=== PATIENT | female | born 1995 | race Caucasian/White ===

== ENCOUNTER 2024-04-17 21:07 | Emergency (ER) | payer OTHER ==
--- OUTSIDE RECORDS SUMMARY | 2024-04-17 21:10 | XMS REPORT | Continuity of Care Document ---
Author Name Unknown Address [address] [facility] [address] [place] [address] [facility] [address] [facility] [address] [place] [address] Care Team Providers Care Community Organization Director Name Role Phone Pcp, Patient Does Not Have A Primary Care Physic rebecca MARK_Benjie_Gretel Attending Clinician Unavailab jarad Doctor Unassigned, [address] Attending Clinician U Dilcia Ackerman MD Attending Clinician [phone] Provider, [facility] Attending Clinician Unavailable Ashwin Spangler Attending Clinician [phone] DILCIA PATEL Attending Clinician Unavailable Unknown, Attending Attending Clinician Unavailab jarad Pcp, Patient Does Not Have A Attending Clinician TRINI HERNANDEZ III Attending Clinician UnavailYoon Ivey Attending Clinician [phone] Trini Hernandez MD Attending Clinician [phone] Kelsey Silva Attending Clinician [phone] ASHWIN FERRELL Attending Clinician Unavailable UNKNOWN, ATTENDING Attending Clinician Unavailab Lissette Hernandez RN Attending Clinician Unavailab Nori Petersen Attending Clinician [phone] Provider, [facility] Attending Clinician Un available YOON GONZALES Attending Clinician Unavailable Corey Admitting Clinician Unavailab jarad Payers Payer Name Policy Type Policy Number Effective Date Expirati on Date Source [place] [id number] 2020 00:00:00 Problems Condition Name Condition Details Condition Category Status Onset Date Resolution Date Last Treatment Date Treating Clinician Comments Source No known active problems No known active problems Disease [facility] Allergies, Adverse Reactions, Alerts Allergy Name Allergy Type Status Severity Reaction(s) Onset Date Inactive Date Treating Clinician Comments Source Adhesive Drug Allergy Active Rash 01-07 00:00: 00 [facility] Adhesive Drug Allergy Active Rash 01-07 00:00: 00 [facility] ADHESIVE Drug Class Active Rash 01-07 00:00: 00 [facility] ADHESIVE Allergy to substanc e Active [facility] Social History Social Habit Start Date Stop Date Quantity Comments Source Gender identity [facility] to SARS-CoV-2 (event) Not sure [facility] History of Social function 2022-11-24 00:00:00 2022-11-24 00:00:00 [facility] Tobacco use and exposure 2020-04-05 00:00:00 2020-04-05 00:00:00 Smokeless tobacco non-user [facility] Sex Assigned At 1995 00:00:00 1995 00:00:00 [facility] Smoking Status Start Date Stop Date Source Never smoked tobacco [facility] Medications Ordered Medication Name Filled Medication Name Start Date Stop Date Current Medication? Ordering Clinician Indication Dosage Frequency Signature (SIG) Comments Components Source cefdinir 300 mg capsule 12-01 00:00: 00 12-12 04:59 :00 No [id number] 600mg Take 2 capsules by mouth in the morning for 10 days. [facility] Nitrofurant oin&Nit. Macrocryst 100 mg capsule 11-24 00:00: 00 11-30 04:59 :00 No [id number] 100mg Take 1 capsule by mouth in the morning and 1 capsule in the evening. Do all this for 5 days. [facility] fluconazole (DIFLUCAN) 150 mg tablet 11-24 00:00: 00 11-25 04:59 :00 No [id number] 150mg Take 1 tablet by mouth once now for 1 dose. [facility] Nitrofurant oin&Nit. Macrocryst 100 mg capsule 1- 00:00: 00 06-05 05:59 :00 No [id number] 100mg Take 1 capsule by mouth 2 (two) times daily for 7 days. [facility] levonorgest reL (MACHELLE) 14 mcg/24 hrs (3 yrs) 13.5 mg IUD 01-07 14:34: 06 Yes Machelle 14 mcg/24 hrs (3 yrs) 13.5 mg intrauteri ne device Take 1 device by intrauteri ne route. [facility] glycopyrrol ate 1 mg tablet TAKE 2 TABLETS BY MOUTH TWICE DAILY glycopyrrol ate 1 mg tablet TAKE 2 TABLETS BY MOUTH TWICE DAILY No glycopyrro late 1 mg tablet TAKE 2 TABLETS BY MOUTH TWICE DAILY [facility] Immunizations Ordered Immunization Name Filled Immunization Name Date Status Comments Source COVID-19 (SARS-COV-2) vaccine, unspecified COVID-19 (SARS-COV-2) vaccine, unspecified Unknown Completed [facility] Vital Signs Vital Name Observation Time Observation Value Comments S ource Body Weight 2024-03-26 00:00:00 185 [lb_av] [facility] BP Diastolic 2024-03-26 00:00:00 74 mm[Hg] [facility] BMI (Body Mass Index) 2024-03-26 00:00:00 30.8 kg/m2 [facility] BP Systolic 2024-03-26 00:00:00 126 mm[Hg] [facility] Height 2024-03-26 00:00:00 65 [in_i] [facility] BP Diastolic 2023-11-24 00:00:00 85 mm[Hg] [facility] BP Systolic 2023-11-24 00:00:00 127 mm[Hg] [facility] Height 2023-11-24 00:00:00 65 [in_i] [facility] BMI (Body Mass Index) 2023-11-24 00:00:00 32.6 kg/m2 [facility] Body Weight 2023-11-24 00:00:00 196 [lb_av] [facility] Systolic blood pressure 2022-11-24 14:04:00 130 mm[Hg] [facility] Diastolic blood pressure 2022-11-24 14:04:00 81 mm[Hg] [facility] Heart rate 2022-11-24 14:04:00 100 /min [facility] Body temperature 2022-11-24 14:04:00 36.5 Jennifer [facility] Respiratory rate 2022-11-24 14:04:00 16 /min [facility] Body height 2022-11-24 14:04:00 165.1 cm [facility] Body weight 2022-11-24 14:04:00 88.315 kg [facility] BMI 2022-11-24 14:04:00 32.40 kg/m2 [facility] Oxygen saturation in Arterial blood by Pulse oximetry 2022-11-24 14:04:00 98 /min [place] [facility] Height 2021-05-14 00:00:00 65 [in_i] [facility] BMI (Body Mass Index) 2021-05-14 00:00:00 30.4 kg/m2 [facility] Body Weight 2021-05-14 00:00:00 182.4 [lb_av] [facility] Procedures Procedure Date / Time Performed Performing Clinicia n Source POCT TEST 2022-11-24 00:00:00 Dilcia Patel [facility] Encounters Start Date/Time End Date/Time Encounter Type Admission Type Attending [facility] Care Facility Care Department Encounter ID Source 2024-03-26 00:00:00 2024-03-26 00:00:00 Kelsey Silva MD: [address] [facility] [facility], [address], [place] [address] , Ph. [facility]_ [place] Office* [id number] [facility] 2023-11-24 00:00:00 2023-11-24 00:00:00 Kelsey Silva MD: [address] [place] [address] , Ph. [facility]_ [place] Office [id number] [facility] 2023-05-10 00:00:00 2023-05-10 00:00:00 Outpatient [facility] Black[facility]D [facility] [id number] [facility] 2022-12-28 00:00:00 2022-12-28 00:00:00 Patient Secure Msg Doctor Unassigned, [address] [facility] 1.2.840.114 350.1.13.10 4.2.7.2.686 [id number] [facility] 2022-12-04 00:00:00 2022-12-04 00:00:00 Refill Dilcia Patel [facility] 1.840.114 350.1.13.10 4.2.7.2.686 [id number] [facility] 2022-12-01 00:00:00 2022-12-01 00:00:00 Telephone Provider, [facility] 1..840.114 350.1.13.10 4.2.7.2.686 [id number] [facility] 2022-11-27 00:00:00 2022-11-27 00:00:00 Telephone Ashwin Ferrell [facility] 1..840.114 350.1.13.10 4.2.7.2.686 [id number] [facility] 2022-11-24 09:20:00 2022-11-24 09:28:07 Outpatient R DILCIA PATEL [facility] [id number] [facility] 2022-11-24 09:20:00 2022-11-24 09:28:07 Urgent Care Dilcia Patel Unknown, Attending [facility] 1.840.114 350.1.13.10 4.2.7.2.686 [id number] [facility] 2022-11-20 00:00:00 2022-11-20 00:00:00 Outpatient [facility]_ Black_D PRIV PRIV [id number] [facility] 2022-10-22 00:00:00 2022-10-22 00:00:00 Outpatient [facility] Black_D PRIV PRIV [id number] [facility] 2022-10-19 00:00:00 2022-10-19 00:00:00 Outpatient [facility] Black_D PRIV PRIV [id number] [facility] 2022-10-19 00:00:00 2022-10-19 00:00:00 Outpatient [facility] Black_D PRIV PRIV [id number] [facility] 2021-07-23 02:39:00 2021-07-23 02:39:00 Outpatient [facility] Black_D PRIV PRIV [id number] [facility] 2021-06-25 05:43:00 2021-06-25 05:43:00 Outpatient [facility] Black_D PRIV PRIV [id number] [facility] 2021-05-29 00:00:00 2021-05-29 00:00:00 Patient Secure Msg Pcp, Patient Does Not Have [facility] 1.2.840.114 350.1.13.10 4.2.7.2.686 [id number] [facility] 2021-05-28 16:20:00 2021-05-28 16:45:56 Outpatient TRINI CABEZAS III [facility] [id number] [facility] 2021-05-28 16:20:00 2021-05-28 16:40:00 Urgent Care Yoon Gonzales James C [facility] 1.2.840.114 350.1.13.10 4.2.7.2.686 [id number] [facility] 2021-05-28 03:24:00 2021-05-28 03:24:00 Outpatient [facility] Black_D PRIV PRIV [id number] [facility] 2021-05-28 00:00:00 2021-05-28 00:00:00 Orders Only Doctor Unassigned, [address] [facility] 1.2.840.114 350.1.13.10 4.2.7.2.686 [id number] [facility] 2021-05-15 10:17:00 2021-05-15 10:17:00 Outpatient [facility] Black_D PRIV PRIV [id number] [facility] 2021-05-14 10:03:00 2021-05-14 10:03:00 Outpatient [facility] Black_D PRIV PRIV [id number] [facility] 2021-05-14 00:00:00 2021-05-14 00:00:00 Outpatient Kelsey Silva PRIV PRIV [id number] 2021-05-14 00:00:00 2021-05-14 00:00:00 Kelsey Silva MD: [place] [address] , Ph. [facility] [place] Office [id number] [facility] 2021-05-13 11:48:00 2021-05-13 11:48:00 Outpatient [facility] Black_D PRIV PRIV [id number] [facility] 2021-04-02 09:46:00 2021-04-02 09:46:00 Outpatient [facility] Black_D PRIV PRIV [id number] [facility] 2021-04-01 10:18:00 2021-04-01 10:18:00 Outpatient [facility] Black_D PRIV PRIV [id number] [facility] 2021-02-26 17:00:00 2021-02-26 17:00:00 Outpatient R ASHWIN FERRELL [facility] [id number] [facility] 2021-02-26 16:00:00 2021-02-26 16:00:00 Outpatient R UNKNOWN, ATTENDING [facility] [id number] [facility] 2021-01-08 00:00:00 2021-01-08 00:00:00 Letter (Out) Lissette Schmidt [facility] 1..840.114 350.1.13.10 4.2.7.2.686 [id number] [facility] 2021-01-07 15:20:00 2021-01-07 15:20:00 Outpatient R UNKNOWN, ATTENDING [facility] [id number] [facility] 2021-01-07 14:00:32 2021-01-07 14:20:32 Urgent Care Nori Duran Unknown, Attending [facility] 1..840.114 350.1.13.10 4.2.7.2.686 [id number] [facility] 2020-04-05 16:40:40 2020-04-05 17:54:47 Urgent Care Provider, [facility] Urgent Care Yoon Gonzales [facility] Silvana [facility] Office [facility] 1..840.114 350.1.13.10 4.2.7.2.686 [id number] [facility] 2020-04-05 17:40:00 2020-04-05 17:40:00 Outpatient R YOON GONZALES [facility] [id number] [facility] Results Test Description Test Time Test Comments Results Result Co mments Source [facility] [id number] 16:07:00* Test Item Value Reference Range Interpretation Comme nts POCT PREG (test code = 1605) Negative On board controls acceptable with C Line (test code = 3574) Yes POCT PREG LOT # (test code = 3575) POCT PREG TEST DATE ( test code = 3576) [id number] 00:00:00* Test Item Value Reference Range Interpretation Comme nts HPV thinprep (test code = HP V thinprep) negative negative [facility], LB + HR [id number] 00:00:00* Test Item Value Reference Range Interpretation Comme nts LMP date: (test code = LMP date:) 05/21/2021 Pap, liquid-based (test code = Pap, liquid-based) nilm nilm source (liquid-based cytology): (test code = source (liquid-based cytology):) cervical-endocervical- vaginal [facility]
--- NOTE | 2024-04-17 22:23 | RAD REPORT ---
EXAMINATION: US FIRST TRIMESTER TRANSVAGINAL WITH DOPPLER CLINICAL INDICATION: with pelvic pain TECHNIQUE: Real-time obstetrical ultrasonography of the maternal pelvis and first trimester was performed transvaginally. Color and spectral Doppler evaluation of the ovaries was performed. COMPARISON: No prior exam. FINDINGS: The uterus measures 8 x 3 x 4 cm. A gestational sac is not visualized within the endometrium. Nabothian cysts within the cervix. Right ovary normal in size and echotexture. Blood flow present. Left ovary is enlarged measuring 4.8 x 4.8 x 3.5 cm. Blood flow is present. Right and left adnexa unr emarkable Right and left adnexa unremarkable. Small amount of free fluid in the cul-de-sac. IMPRESSION: Non visualization of a gestational sac within the endometrium. This could be a viable intrauterine pr egnancy in which the gestational sac not seen secondary to the early gestation. Other considerations include an and even ectopic . This should be correlated clinically and with serial beta-hCG levels. Follow-up endovaginal sonogram in one week recommended for reevaluation Enlargement of the left ovary.
[2024-04-17 22:27] LABS: Anion Gap 8.7 mEq/L (5.0-15.0); Potassium 3.7 mEq/L (3.5-5.1)
[2024-04-17 22:29] LABS: Absolute Eosinophils 0.3 K/uL (0-0.5); Absolute Lymphocytes (CBC) 3.9 K/uL (0.7-4.9); Absolute Monocytes 0.9 K/uL (0.1-1.3); Absolute Neutrophil 8.3 K/uL (1.8-8.0); Basophils % 0.3 % (0-1.3); Eosinophils % 1.9 % (0-4.4); Hematocrit 43.5 % (36.0-45.0); Hemoglobin 15.1 g/dL (12.0-15.0); Lymphocytes % 29.1 % (15.3-44.8); MCH 31.4 pg (27.0-35.0); MCHC 34.7 g/dL (32.0-36.0); MCV 90.4 fL (80-100); MPV 9.5 fL (7.6-11.3); Monocytes % 6.7 % (3.3-12.3); Nucleated Red Blood Cells % 0.1 % (0-0); Platelets 310 thou/uL (152-406); RBC Red Blood Cell Count 4.81 M/uL (3.86-4.86); Red Cell Distribution Width 13.4 % (12.1-15.2)
--- NOTE | 2024-04-17 23:14 | EDPHYS ---
Physician Documentation [facility] Name: Anny Webber Age: 29 yrs Sex: Female : 1995 Arrival Date: 04/17/2024 Time: 21:07 Bed 17 Private MD: ED Physician Gustavo Muniz HPI: 04/17 23:17 This 29 yrs old Female presents to ER via Ambulatory with complaints of Vaginal kb Bleeding, + Preg <12wks, Abdominal Cramping. 23:17 Pt is a 29 year old female who presents for lower abd cramping and vaginal bleeding. kb States she recently had a positive test. LMP 03/23/24. 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 - Infectious Disease History:: Denies. - Social history:: Smoking status: Patient denies any tobacco usage or history of. ROS: 22:56 Constitutional: As per HPI kb Exam: 23:14 Constitutional: This is a well developed, well nourished patient who is awake, alert, kb and in no acute distress. Head/Face: Normocephalic, atraumatic. ENT: Moist Mucous membranes Cardiovascular: Regular rate Respiratory: Respirations even and unlabored. No increased work of breathing. Talking in full sentences Skin: Warm, dry with normal turgor. Normal color. MS/ Extremity: Pulses equal, no cyanosis. Neurovascular intact. Full, normal range of motion. Neuro: Awake and alert, GCS 15, oriented to person, place, time, and situation. 23:14 Abdomen/GI: Inspection: abdomen appears normal, Palpation: soft, in all quadrants, mild abdominal tenderness, in the right lower quadrant and left lower quadrant, Vital Signs: 21:19 BP 154 / 104; Pulse 109; MAP 119 mmHg; tm6 21:19 Resp 18; Temp 98.9(O); Pulse Ox 98% on R/A; Weight 83.91 kg; Height 5 ft. 5 in. ; Pain tm6 9/10; 22:03 BP 137 / 98; Pulse 87; Resp 17; Pulse Ox 98% on R/A; rg5 21:19 Body Mass Index 30.79 (83.91 kg, 165.1 cm) tm6 21:19 Pain Scale: Adult tm6 Dania Coma Score: 22:30 Eye Response: spontaneous(4). Motor Response: obeys commands(6). Verbal Response: rg5 oriented(5). Total: 15. MDM: 21:13 Medical Screening Exam initiated kb 23:13 Differential diagnosis: threatened Ab, ectopic . Data reviewed: vital signs, kb nurses notes. Counseling: I had a detailed discussion with the patient and/or guardian regarding the historical points, exam findings, and any diagnostic results supporting the discharge/admit diagnosis, lab results, radiology results, the need for outpatient follow up, an OB/Gyne specialist. ED course: Pt has follow up appt with OB scheduled for Tuesday. 04/17 21:22 Order name: Abo/rh Typing; Complete Time: 22:56 kb 04/17 21:22 Order name: Basic Metabolic Panel; Complete Time: 22:28 kb 04/17 21:22 Order name: CBC with Diff; Complete Time: 22:51 kb 04/17 21:22 Order name: Quantitative Hcg; Complete Time: 22:28 kb 04/17 21:22 Order name: US Transvaginal Ob; Complete Time: 22:26 kb 04/17 21:22 Order name: IV Saline Lock; Complete Time: 21:58 kb 04/17 21:22 Order name: Labs collected and sent; Complete Time: 21:58 kb 04/17 21:22 Order name: NPO; Complete Time: 21:58 kb Administered Medications: No medications were administered Disposition: 04/18 03:12 Co-signature as Attending Physician, Gustavo Muniz MD I agree with the assessment sp4 and plan of care. I reviewed the patient's care provided by the Advanced Practice Provider and agree with the diagnosis and treatment plan. Disposition Summary: 04/17/24 23:13 Discharge Ordered Notes: Location: Home kb Condition: Stable kb Diagnosis - Threatened kb Followup: kb - With: Emergency Department - When: As needed - Reason: Worsening of condition Followup: kb - With: Private Physician - When: 2 - 3 days - Reason: Recheck today's complaints, Continuance of care, Re-evaluation by your physician Discharge Instructions: - Discharge Summary Sheet kb - Threatened Miscarriage, [id number] kb - Vaginal Bleeding During , First Trimester, Jngt-zb-Garg kb Forms: - Medication Reconciliation Form kb - Antibiotic Education kb - Prescription Opioid Use kb - Patient Portal Instructions kb - Leadership Thank You Letter kb Signatures: Dispatcher [employer] Catarina Macdonald, JOZEFC TRAMPOLINE TEAM COACH-Gustavo Cardoza MD MD sp4 Janneth Rooney RN RN tm6
--- NOTE | 2024-04-17 23:14 | ER ---
Nurse's Notes [facility] Name: Anny Webber Age: 29 yrs Sex: Female : 1995 Arrival Date: 04/17/2024 Time: 21:07 Bed 17 Private MD: Diagnosis: Threatened Presentation: 04/17 21:19 Chief complaint: Patient states: I started cramping around 1830, but got worse and tm6 worse. Now I'm bleeding. I'm about 4-5 weeks . Coronavirus screen: Client denies travel out of the [place] in the last 14 days. Ebola Screen: Patient negative for fever greater than or equal to 101.5 degrees Fahrenheit, and additional compatible Ebola Virus Disease symptoms Patient denies exposure to infectious person. Patient denies travel to an Ebola-affected area in the 21 days before illness onset. No symptoms or risks identified at this time. 21:19 Method Of Arrival: Ambulatory tm6 21:21 Initial Sepsis Screen: Does the patient meet any 2 criteria? HR > 90 bpm. Does the tm6 patient have a suspected source of infection? No. Patient's initial sepsis screen is negative. Risk Assessment: Do you want to hurt yourself or someone else? Patient reports no desire to harm self or others. Onset of symptoms was April 17, 2024 at 18:30. 21:21 Acuity: JORDAN 3 tm6 Triage Assessment: 21:21 General: Appears distressed, Behavior is cooperative, crying. Pain: Complains of pain tm6 in suprapubic area Pain currently is 9 out of 10 on a pain scale. Quality of pain is described as crampy, Pain began 2 hours ago. EENT: No signs and/or symptoms were reported regarding the EENT system. Neuro: Level of Consciousness is awake, alert, obeys commands, Oriented to person, place, time, situation. Cardiovascular: Patient's skin is warm and dry. Respiratory: Airway is patent Respiratory effort is even, unlabored, Respiratory pattern is regular, symmetrical. GI: No signs and/or symptoms were reported involving the gastrointestinal system. Abdomen is round non-distended. : Reports cramping, vaginal bleeding that is. Derm: No signs and/or symptoms reported regarding the dermatologic system. Musculoskeletal: Reports pain in suprapubic area. [employer]: 21:19 LMP 03/21/2024, unknown tm6 Historical: - Allergies: 21:19 Adhesives; tm6 - PMHx: 21:19 None; tm6 - PSHx: 21:19 None; tm6 - Immunization history:: Flu vaccine is not up to date. - Infectious Disease History:: Denies. - Social history:: Smoking status: Patient denies any tobacco usage or history of. Screenin:30 [facility] ED Fall Risk Assessment (Adult) History of falling in the last 3 months, rg5 including since admission No falls in past 3 months (0 pts) Confusion or Disorientation No (0 pts) Intoxicated or Sedated No (0 pts) Impaired Gait No (0 pts) Mobility Assist Device Used No (0 pt) Altered Elimination No (0 pt) Score/Fall Risk Level 0 - 2 = Low Risk Oriented to surroundings, Maintained a safe environment, Hourly rounding (assess needs \T\ fall precautionary measures) done. Abuse screen: Denies threats or abuse. Nutritional screening: No deficits noted. Tuberculosis screening: No symptoms or risk factors identified. Assessment: 22:30 Obstetrical Assessment: General assessment: awake and alert, anxious, Patient reports rg5 abdominal cramping. General: Appears uncomfortable, Behavior is crying. Pain: Complains of pain in abdomen Pain currently is 8 out of 10 on a pain scale. Quality of pain is described as crampy, Pain began 2 hours ago. Neuro: Level of Consciousness is awake, alert, obeys commands, Oriented to person, place, time. Cardiovascular: Denies chest pain, Patient's skin is warm and dry. Respiratory: Airway is patent Trachea midline Respiratory effort is even, unlabored. GI: Reports cramping. : Reports vaginal bleeding that is light flow. EENT: No deficits noted. Derm: Skin is intact, Skin is dry, Skin is normal. Musculoskeletal: Circulation, motion, and sensation intact. Range of motion: intact in all extremities. 23:14 Reassessment: Patient and/or family updated on plan of care and expected duration. Pain rg5 level reassessed. Patient is alert, oriented x 3, equal unlabored respirations, skin warm/dry/pink. Patient states feeling better. Vital Signs: 21:19 BP 154 / 104; Pulse 109; MAP 119 mmHg; tm6 21:19 Resp 18; Temp 98.9(O); Pulse Ox 98% on R/A; Weight 83.91 kg; Height 5 ft. 5 in. ; Pain tm6 9/10; 22:03 BP 137 / 98; Pulse 87; Resp 17; Pulse Ox 98% on R/A; rg5 21:19 Body Mass Index 30.79 (83.91 kg, 165.1 cm) tm6 21:19 Pain Scale: Adult tm6 Levar Coma Score: 22:30 Eye Response: spontaneous(4). Motor Response: obeys commands(6). Verbal Response: rg5 oriented(5). Total: 15. ED Course: 21:10 Patient arrived in ED. im 21:12 Catarina Amezquita FNP-C [facility]. kb 21:13 Gustavo Muniz MD is Attending Physician. kb 21:21 Triage completed. tm6 21:21 Arm band placed on right wrist. tm6 21:26 Maxwell Garland, BRAULIO is Primary Nurse. rg5 21:30 No provider procedures requiring assistance completed. Inserted saline lock: 20 gauge rg5 in left antecubital area, using aseptic technique. Blood collected. Flushed with 10 mL NS. 22:09 US Transvaginal Ob In Process Unspecified. EDMS 22:30 Patient has correct armband on for positive identification. Placed in gown. Bed in low rg5 position. Call light in reach. Side rails up X 1. Adult w/ patient. Door closed. Noise minimized. Warm blanket given. Verbal reassurance given. 23:23 Provided Education on: post er care. rg5 23:23 IV discontinued, bleeding controlled, No redness/swelling at site. Pressure dressing rg5 applied. Administered Medications: No medications were administered Medication: 22:30 VIS not applicable for this client. rg5 Outcome: 23:13 Discharge ordered by . kb 23:22 Discharged to home ambulatory, rg5 23:22 Condition: stable 23:22 Discharge instructions given to patient, Instructed on discharge instructions, follow up and referral plans. Demonstrated understanding of instructions, follow-up care, 23:23 Patient left the ED. rg5 Signatures: Dispatcher [employer] EDOR Catarina Amezquita FNP-C FNP-Ayanna Xie Tawney, RN RN tm6 Maxwell Garland, RN RN rg5
[2024-04-17 23:37] VITALS: TEMP 98.9; O2SAT 98
[2024-04-17 23:47] VITALS: BP 137/98
== END 2024-04-17 23:23 | disposition home or self-care (01) ==
LOC: ER 21:07
DX: O20.0 Threatened abortion (principal)
CPT/HCPCS: 36415; 76817; 80048; 84702; 85025; 86900; 86901; 99283